=== PATIENT | female | born 1995 | race American Indian/Alaskan Native ===

== ENCOUNTER 2021-03-02 13:30 | Emergency (ER) | payer SELFPAY ==
[2021-03-02 14:01] VITALS: BP 130/55
--- NOTE | 2021-03-02 15:32 | Emergency Department Report ---
ED General Adult HPI - General Chief complaint: Upper Respiratory Infection Stated complaint: NASAL CONGESTION COUGH Time Seen by Provider: 03/02/21 14:31 Source: patient Mode of arrival: Ambulatory Limitations: No Limitations - History of Present Illness Initial comments: 25-year-old -[place] female patient without past medical history presents with complaints of nasal congestion and cough x1 week. She reports Benadryl helps some. She denies any hemoptysis, shortness of breath, chest pain, fever/chills/sweats, or headache. No loss of taste/smell or recent known sick contacts per patient. - Related Data Previous Rx's Medication Instructions Recorded Last Taken Type Prednisone [predniSONE 10 mg 10 mg PO .TAPER #1 tab.ds.pk 03/02/21 Unknown Rx (6-Day Pack, 21 Tabs)] Allergies Allergy/AdvReac Type Severity Reaction Status Date / Time No Known Allergies Allergy Unverified 03/02/21 14:03 ED Review of Systems ROS: Stated complaint: NASAL CONGESTION COUGH Other details as noted in HPI Constitutional: denies: chills, diaphoresis, fever, malaise, weakness ENT: throat pain. denies: ear pain Respiratory: cough. denies: shortness of breath Cardiovascular: denies: chest pain Gastrointestinal: denies: abdominal pain, nausea, vomiting Skin: denies: rash, lesions, change in color Neurological: denies: headache ED Past Medical Hx - Past Medical History Previous Medical History?: No - Surgical History Past Surgical History?: No - Medications Home Medications: Home Medications Medication Instructions Recorded Confirmed Last Taken Type Prednisone [predniSONE 10 mg 10 mg PO .TAPER #1 tab.ds.pk 03/02/21 Unknown Rx (6-Day Pack, 21 Tabs)] ED Physical Exam - General Limitations: No Limitations General appearance: alert, in no apparent distress - Head Head exam: Present: atraumatic, normocephalic - Eye Eye exam: Present: normal appearance. Absent: scleral icterus - ENT ENT exam: Present: TM's normal bilaterally, other (No frontal or maxillary sinus tenderness to palpation noted on exam; postnasal drainage noted; turbinates are swollen and erythematous bilaterally) - Expanded ENT Exam Expanded Mouth exam: Present: muffled voice. Absent: drooling, trismus Throat exam: Negative: tonsillar erythema, tonsillomegaly, tonsillar exudate - Neck Neck exam: Present: normal inspection. Absent: lymphadenopathy - Respiratory Respiratory exam: Present: normal lung sounds bilaterally. Absent: respiratory distress - Cardiovascular Cardiovascular Exam: Present: regular rate, normal rhythm - Neurological Exam Neurological exam: Present: alert, oriented X3, normal gait - Psychiatric Psychiatric exam: Present: normal affect, normal mood - Skin Skin exam: Present: warm, dry, intact, normal color. Absent: rash ED Course Vital Signs 03/02/21 13:58 Temperature 98.0 F Pulse Rate 101 H Respiratory 20 Rate Blood Pressure 130/55 O2 Sat by Pulse 100 Oximetry ED Medical Decision Making - Medical Decision Making 25-year-old -[place] female patient without past medical history presents with complaints of nasal congestion and cough x1 week. She reports Benadryl helps some. She denies any hemoptysis, shortness of breath, chest pain, fever/chills/sweats, or headache. No loss of taste/smell or recent known sick contacts per patient. Postnasal drainage with nasal congestion noted on exam. Lungs are clear on exam. Vitals are normal. Will treat for viral URI and sinusitis with antihistamines, nasal saline, and prednisone. Recommend follow-up with PCP in 3 to 5 days. Discussed in great detail signs and symptoms that should prompt immediate return to the emergency department in detail patient verbalized understanding. Critical care attestation.: If time is entered above; I have spent that time in minutes in the direct care of this critically ill patient, excluding procedure time. ED Disposition Clinical Impression: Acute viral sinusitis Disposition: DC-01 TO HOME OR SELFCARE Is pt being admited?: No Condition: Stable Instructions: Sinusitis, Adult, [id number] Additional Instructions: Recommend [id number] fluticasone nasal spray, loratadine once daily, and nasal saline 6 times daily. Prescriptions: Prednisone [predniSONE 10 mg (6-Day Pack, 21 Tabs)] 10 mg PO .TAPER #1 tab.ds.pk Referrals: [facility] [Provider Group] - 3-5 Days
== END 2021-03-02 16:07 | disposition home or self-care (01) ==
LOC: ED 13:30
DX: J01.90 Acute sinusitis, unspecified (principal); B97.89 Other viral agents as the cause of diseases classified elsewhere; Z79.899 Other long term (current) drug therapy
CPT/HCPCS: 99282

== ENCOUNTER 2021-05-23 14:35 | Emergency (ER) | payer SELFPAY ==
[2021-05-23 15:12] VITALS: BP 126/81
--- NOTE | 2021-05-23 15:25 | Emergency Department Report ---
ED Female HPI - General Chief complaint: Medical Clearance Stated complaint: PARTNER HAVING PENIS DISCHARGE Time Seen by Provider: 05/23/21 15:08 Source: patient Mode of arrival: Ambulatory Limitations: No Limitations - History of Present Illness Initial comments: This is a 25-year-old female nontoxic, well nourished in appearance, no acute signs of distress presents to the ED for STD testing. Patient stated she is asymptomatic per her partner has penile discharge should she wants to be tested. Patient denies any vaginal discharge. Patient denies any symptoms or complaints. Patient denies any vaginal pain or swelling. Patient denies any vaginal ulcers or lesions. Patient denies any nausea, vomiting, chest pain, shortness of breathe, fever, chills, headache, back pain, numbness, tingling, stiff neck. Patient denies any urinary symptoms. Patient denies any pelvic pain or abdominal pain. Denies any back pain. Patient denies any allergies or PMH. Severity scale (0 -10): 0 Are you Now?: No Associated Symptoms: denies other symptoms. denies: vaginal discharge, vaginal bleeding, abdominal pain, nausea/vomiting, fever/chills, headaches, dysuria, hematuria, rash, seizure, shortness of breath, syncope, weakness - Related Data Previous Rx's Medication Instructions Recorded Last Taken Type Prednisone [predniSONE 10 mg 10 mg PO .TAPER #1 tab.ds.pk 03/02/21 Unknown Rx (6-Day Pack, 21 Tabs)] Allergies Allergy/AdvReac Type Severity Reaction Status Date / Time No Known Allergies Allergy Unverified 03/02/21 14:03 ED Review of Systems ROS: Stated complaint: PARTNER HAVING PENIS DISCHARGE Other details as noted in HPI Comment: All other systems reviewed and negative Constitutional: denies: chills, fever Eyes: denies: eye pain, eye discharge, vision change ENT: denies: ear pain, throat pain Respiratory: denies: cough, shortness of breath, wheezing Cardiovascular: denies: chest pain, palpitations Endocrine: no symptoms reported Gastrointestinal: denies: abdominal pain, nausea, diarrhea Genitourinary: denies: urgency, dysuria, discharge Musculoskeletal: denies: back pain, joint swelling, arthralgia Skin: denies: rash, lesions Neurological: denies: headache, weakness, paresthesias Psychiatric: denies: anxiety, depression Hematological/Lymphatic: denies: easy bleeding, easy bruising ED Past Medical Hx - Past Medical History Previous Medical History?: No - Surgical History Past Surgical History?: Yes Additional Surgical History: ectopic x2, right tube removed - Social History Smoking Status: Never Smoker - Medications Home Medications: Home Medications Medication Instructions Recorded Confirmed Last Taken Type Prednisone [predniSONE 10 mg 10 mg PO .TAPER #1 tab.ds.pk 03/02/21 Unknown Rx (6-Day Pack, 21 Tabs)] ED Physical Exam - General Limitations: No Limitations General appearance: alert, in no apparent distress - Head Head exam: Present: atraumatic, normocephalic - Eye Eye exam: Present: normal appearance - Neck Neck exam: Present: full ROM - Respiratory Respiratory exam: Absent: respiratory distress - Cardiovascular Cardiovascular Exam: Present: regular rate - GI/Abdominal GI/Abdominal exam: Present: soft. Absent: distended, tenderness - Extremities Exam Extremities exam: Present: full ROM - Back Exam Back exam: Present: normal inspection, full ROM. Absent: tenderness, CVA tenderness (R), CVA tenderness (L), muscle spasm, paraspinal tenderness, vertebral tenderness, rash noted - Neurological Exam Neurological exam: Present: alert, oriented X3, normal gait - Psychiatric Psychiatric exam: Present: normal affect, normal mood - Skin Skin exam: Present: warm, dry, intact, normal color. Absent: rash ED Course Vital Signs 05/23/21 14:52 Temperature 98.4 F Pulse Rate 102 H Respiratory 18 Rate Blood Pressure 126/81 [Right] O2 Sat by Pulse 100 Oximetry - Reevaluation(s) Reevaluation #1: 05/23/21 15:22 Patient is speaking in full sentences with no signs of distress noted. ED Medical Decision Making - Medical Decision Making This is a 25-year-old female that presents for STD testing. Patient is stable was examined by me. There is no abdominal tenderness. No pelvic pain. During this visit patient is asymptomatic and denies any symptoms. Patient was given a form with many referrals for STD testing. Patient was instructed to Follow-up with a primary care doctor in 3-5 days or if symptoms worsen and continue return to emergency room as soon as possible. At time of discharge, the patient does not seem toxic or ill in appearance. No acute signs of distress noted. Patient agrees to discharge treatment plan of care. No further questions noted by the patient. Critical care attestation.: If time is entered above; I have spent that time in minutes in the direct care of this critically ill patient, excluding procedure time. ED Disposition Clinical Impression: Concern about STD in female without diagnosis Disposition: 01 HOME / SELF CARE / HOMELESS Is pt being admited?: No Does the pt Need Aspirin: No Condition: Stable Instructions: Safe Sex Additional Instructions: Follow-up with a primary care doctor in 3-5 days or if symptoms worsen and continue return to emergency room as soon as possible. You have been given many referrals for STD testing for further evaluation. Referrals: PRIMARY MD DEMETRIUS [Referring] - 3-5 Days KIRSTIN RICO MD [Staff Physician] - 3-5 Days [facility] [Outside] - 3-5 Days [facility] [Provider Group] - 3-5 Days Time of Disposition: 15:24
== END 2021-05-23 18:51 | disposition home or self-care (01) ==
LOC: ED 14:35
DX: Z11.3 Encounter for screening for infections with a predominantly sexual mode of transmission (principal)
CPT/HCPCS: 99281